=== PATIENT | male | born 2000 | race Caucasian/White ===

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

== ENCOUNTER → 2020-01-02 | Outpatient (CLI) | payer OTHER ==
[~2020-01-02] MED LIST changes: +ADVI100T PO; +CIPR-249 PO; +CYCL-707 PO; -CYCL10TA PO; +PERC5TAB12 PO
--- NOTE | 2020-01-03 03:14 | REP ---
Clinical: History of renal stone. Technique: Two supine views of the abdomen and pelvis. Findings: There is a 7 mm calculus which appears to be overlying the right renal pelvis/ureteropelvic junction and may be causing proximal obstruction. Bowel gas pattern is nonspecific. Skeletal structures are intact. Impression: 7 mm calculus in the region of the right renal pelvis/ureteropelvic junction. Electronically Signed by Prashant Dunaway MD 01/03/2020 03:05 A
== END ==
LOC: M WUC 13:38
PROVIDERS: ATTEND Urology
DX: N20.0 Calculus of kidney (principal)

== ENCOUNTER → 2020-01-17 | Outpatient (CLI) | payer OTHER ==
[2020-01-17 16:11] LABS: APPEARANCE, URINE CLEAR (CLEAR); BACTERIA, URINE AUTO NEGATIVE (NEGATIVE); BILIRUBIN, URINE AUTO NEGATIVE (NEGATIVE); BLOOD, URINE BLOOD NEGATIVE (NEGATIVE); COLOR, URINE STRAW (YELLOW); GLUCOSE, URINE (UA) AUTO NEGATIVE (NEGATIVE); KETONE, URINE AUTO NEGATIVE (NEGATIVE); LEUKOCYTE ESTERASE, URINE AUTO NEGATIVE (NEGATIVE); NITRITE, URINE AUTO NEGATIVE (NEGATIVE); PROTEIN, URINE AUTO NEGATIVE (NEGATIVE); RBC, URINE AUTO 1 /HPF (0-3); SPECIFIC GRAVITY URINE AUTO 1.004 (1.002-1.035); SQUAMOUS EPITHELIAL CELL UR AU 0 /HPF (0-6); UROBILINOGEN, URINE AUTO 0.2 mg/dL (0.0-2.0); WBC, URINE AUTO 0 /HPF (0-3)
[2020-01-17 16:12] LABS: BLOOD UREA NITROGEN 8 MG/DL (7-18); CALCIUM LEVEL 9.5 MG/DL (8.5-10.1); CARBON DIOXIDE LEVEL 29 MEQ/L (21-32); CHLORIDE LEVEL 106 MEQ/L (98-107); CREATININE FOR GFR 0.92 MG/DL (0.70-1.30); GLUCOSE, FASTING 92 MG/DL (70-100); POTASSIUM SERUM 4.1 MEQ/L (3.5-5.1); SODIUM LEVEL 141 MEQ/L (136-145)
[2020-01-17 16:15] LABS: HEMATOCRIT 47.4 % (42.0-52.0); HEMOGLOBIN 16.1 g/dl (13.5-17.5); MEAN CORPUSCULAR HEMOGLOBIN 30.1 pg (27.0-33.0); MEAN CORPUSCULAR VOLUME 88.8 fl (80.0-96.0); PLATELET COUNT, AUTOMATED 323 10^3/uL (150-450); RED BLOOD COUNT 5.34 10^6/uL (4.30-6.10); WHITE BLOOD COUNT 6.6 10^3/uL (4.0-10.0)
== END ==
LOC: M WUC 13:24
PROVIDERS: ATTEND Urology
DX: R31.29 Other microscopic hematuria (principal); N20.0 Calculus of kidney

== ENCOUNTER → 2020-01-21 | Outpatient (CLI) | payer OTHER | LOC: M LABSMTC 10:20 | PROVIDERS: ATTEND Anesthesiology | DX: Z11.59 Encounter for screening for other viral diseases (principal) ==

== ENCOUNTER 2020-01-24 06:49 | Day surgery (SDC) | payer OTHER ==
[~2020-01-24] VITALS: Ht 190.5 cm; Wt 72.6 kg
[2020-01-24] MEDS ORDERED: ceFAZolin 2 GM/D5W 50 ML IV BAG (J0690 PER 500MG) As Ordered ONE (07:15)
[2020-01-24] MEDS ORDERED: propofoL 500 MG/50 ML VIAL As Ordered ONE (07:20)
[2020-01-24] MEDS ORDERED: fentaNYL 100 MCG/2 ML INJECTION (J3010) As Ordered ONE (07:21)
[2020-01-24] MEDS ORDERED: dexameTHASONE 4 MG/ML 1ML VIAL (J1100 PER 1MG) As Ordered ONE (07:21)
[2020-01-24] MEDS ORDERED: MIDAZOLAM INJ 2MG/2ML VIAL (J2250 PER 1MG) As Ordered ONE (07:21)
[2020-01-24] MEDS ORDERED: ceFAZolin SOD 2 GM in IV 1 EA IV ONE (07:30)
[2020-01-24] MEDS ORDERED: ONDANSETRON 4MG/2ML VIAL As Ordered ONE (08:10)
[2020-01-24] MEDS ORDERED: PHENYLephrine HCL 500 MCG/5 ML (100MCG/ML) SYRINGE (J2370) As Ordered ONE (08:44)
[2020-01-24 09:07] VITALS: BP 141/74
--- NOTE | 2020-01-27 11:24 | RO ---
DATE OF PROCEDURE: 01/24/2020 PREPROCEDURE DIAGNOSIS: Right kidney stone. POSTPROCEDURE DIAGNOSIS: Right kidney stone. PROCEDURE: Right extracorporeal shock wave lithotripsy. SURGEON: Dr. Rolo Young MUSHROOM CULTIVATOR: None. ANESTHESIA: Monitored anesthesia care (MAC). OPERATIVE INDICATIONS: This is a 19-year-old male who was found to have an obstructing 6-7 mm right ureteropelvic junction stone. He is brought to the operating room today for treatment. DESCRIPTION OF PROCEDURE: The patient brought to the operating room, and MAC anesthesia was administered. Prophylactic antibiotics were infused. He was then placed in the supine position for a right-sided extracorporeal shock wave lithotripsy. Fluoroscopy was utilized to monitor stone position and fragmentation throughout the procedure. Shock waves were then delivered to the right-sided kidney stone ungated. There were no arrhythmias. The stone appeared to fragment well. After 2500 shocks, the procedure was concluded. The patient was then awakened from anesthesia and transported to the recovery room in stable condition. ESTIMATED BLOOD LOSS: 0 mL. COMPLICATIONS: None. SPECIMENS: None. PLAN: The patient will followup in clinic in a few weeks with imaging prior to assess for residual stone burden.
== END 2020-01-24 09:30 | disposition home or self-care (01) ==
LOC: M SDC 06:49
PROVIDERS: ATTEND Urology
DX: N20.0 Calculus of kidney (principal)
CPT/HCPCS: 50590; J0690; J1100; J2250; J2370; J2405; J3010

== ENCOUNTER → 2020-01-24 | Outpatient (CLI) | payer OTHER ==
--- NOTE | 2020-01-24 07:06 | REP ---
Clinical: Kidney stone. Comparison: 01/02/2020. Findings: Evaluation of the urinary check system is heavily limited by overlying bowel gas. No obvious urinary tract calcifications are identified. No evidence for bowel obstruction. No organomegaly. No abnormal calcifications or significant foreign body. Skeletal structures are intact. Impression: Limited examination. No obvious urinary tract calcifications identified. Electronically Signed by Prashant Dunaway MD 01/24/2020 06:57 A
== END ==
LOC: M RAD 06:29
PROVIDERS: ATTEND Urology
DX: Z01.818 Encounter for other preprocedural examination (principal); N20.0 Calculus of kidney

== ENCOUNTER → 2020-02-20 | Outpatient (REF) | payer OTHER | LOC: M SMT 17:43 | PROVIDERS: ATTEND Nurse Practitioner Women's Health | DX: N20.0 Calculus of kidney (principal) ==